=== PATIENT | male | born 1960 | race Caucasian/White ===

== ENCOUNTER 2017-02-20 07:59 | Inpatient (IN) | payer MEDICAID, OTHER ==
[~2017-02-20] VITALS: Ht 172.7 cm; Wt 99.8 kg
[~2017-02-20 07:59] MED LIST: ASPI-1159 PO; BENA40TA3 PO; HYDR-4135 PO; LABE200T PO; SIMV40TA5 PO
[2017-02-20] MEDS ORDERED: SODIUM CHLORIDE 0.9% 1,000 ML IV ONE (08:17)
[2017-02-20] MEDS ORDERED: NITROGLYCERIN 0.4MG TABLET SL SL ONE (08:30)
[2017-02-20] MEDS ORDERED: DILTIAZEM HCL 5MG/ML 5ML VIAL IV ONE ×2 (08:30→08:45)
[2017-02-20 08:43] LABS: BASOPHILS % 1.1 % (0.0-2.0); EOSINOPHILS % 2.6 % (0.0-5.0); HEMATOCRIT. 28.7 % (42.0-52.0); HEMOGLOBIN. 9.5 g/dL (14.0-18.0); LYMPHOCYTES % 30.4 % (20.0-50.0); MEAN CORPUSCULAR HEMOGLOBIN 28.7 pg (28.0-32.0); MEAN CORPUSCULAR VOLUME 86.9 fL (80.0-94.0); MEAN PLATELET VOLUME 8.8 fl (7.4-10.4); MONOCYTES % 7.7 % (2.0-8.0); NEUTROPHILS % 58.2 % (40.0-76.0); PLATELET 206 x1000/uL (130-400); RED BLOOD CELL COUNT 3.31 mill/uL (4.7-6.1)
[2017-02-20 08:51] LABS: D-DIMER 0.93 mg/L FEU (<0.50); INR 1.1; PROTHROMBIN TIME 11.4 sec (9.4-11.6)
[2017-02-20 08:59] LABS: CARBON DIOXIDE 32 mEq/L (21-32); CHLORIDE 97 mEq/L (98-107); T4 FREE 1.07 ng/dL (0.76-1.46); TROPONIN I 0.06 ng/mL (0.00-0.04)
[2017-02-20] MEDS ORDERED: ENOXAPARIN 60MG/0.6ML SYR SUBCUT ONE (10:00)
[2017-02-20] MEDS ORDERED: DILTIAZEM HCL 60MG TABLET PO ONE (10:00)
[2017-02-20] MEDS ORDERED: SODIUM CHLORIDE 0.9% 10ML VIAL ONE (11:43)
[2017-02-20] MEDS ORDERED: IOHEXOL-350 100 ML BOTTLE ONE (11:43)
[2017-02-20] MEDS ORDERED: GUAIFENESIN 200MG/10ML SUGAR FREE UDC PO PRN (14:00)
[2017-02-20] MEDS ORDERED: DOCUSATE SODIUM 100MG CAPSULE PO PRN (14:00)
[2017-02-20] MEDS ORDERED: IPRATROPIUM/ALBUTEROL 0.5-3(2.5)MG/3ML NEB INH PRN (14:00)
[2017-02-20] MEDS ORDERED: ONDANSETRON HCL 4MG/2ML VIAL IV PRN (14:00)
[2017-02-20] MEDS ORDERED: HYDROCODONE/ACETAMINOPHEN 5/325MG TABLET PO PRN (14:00)
[2017-02-20] MEDS ORDERED: MAGNESIUM/ALUMINUM HYDROXIDE/SIMETHICONE 30ML UDC PO PRN (14:00)
[2017-02-20] MEDS ORDERED: DIPHENHYDRAMINE 50MG/ML VIAL IV PRN (14:00)
[2017-02-20] MEDS ORDERED: ACETAMINOPHEN 325MG TABLET PO PRN (14:00)
[2017-02-20] MEDS ORDERED: CLONIDINE 0.1MG TABLET PO PRN (14:00)
[2017-02-20 14:45] VITALS: BP 110/64
[2017-02-20 16:00] VITALS: BP 107/68
[2017-02-20] MEDS: DILTIAZEM HCL 30MG TABLET PO SCH (17:08)
[2017-02-20 20:00] VITALS: BP 106/67
[2017-02-20] MEDS: LABETALOL HCL 200MG TABLET PO SCH (21:36)
[2017-02-20] MEDS: ATORVASTATIN CALCIUM 10MG TABLET PO SCH (21:36)
[2017-02-20 22:00] VITALS: BP 116/70
[2017-02-21] VITALS (12 sets, daily range): BP systolic 99–127; BP diastolic 46–75
[2017-02-21] MEDS: DILTIAZEM HCL 30MG TABLET PO SCH ×4 (00:28→18:17)
[2017-02-21 06:44] LABS: BASOPHILS % 0.7 % (0.0-2.0); EOSINOPHILS % 1.9 % (0.0-5.0); HEMATOCRIT. 25.4 % (42.0-52.0); HEMOGLOBIN. 8.4 g/dL (14.0-18.0); MEAN CORPUSCULAR HEMOGLOBIN 28.8 pg (28.0-32.0); MEAN CORPUSCULAR VOLUME 87.4 fL (80.0-94.0); MEAN PLATELET VOLUME 9.5 fl (7.4-10.4); MONOCYTES % 8.2 % (2.0-8.0); NEUTROPHILS % 66.2 % (40.0-76.0); PLATELET 175 x1000/uL (130-400); RED CELL DISTRIBUTION WIDTH 15.6 % (11.6-14.6)
[2017-02-21 06:51] LABS: T4 FREE 1.08 ng/dL (0.76-1.46); TROPONIN I 0.06 ng/mL (0.00-0.04)
[2017-02-21] MEDS: LABETALOL HCL 200MG TABLET PO SCH ×3 (08:38→21:55)
[2017-02-21] MEDS ORDERED: ASPIRIN 81MG EC TABLET PO SCH (09:00)
[2017-02-21] MEDS: ATORVASTATIN CALCIUM 10MG TABLET PO SCH (20:51)
[2017-02-22] VITALS (11 sets, daily range): BP systolic 113–144; BP diastolic 60–79
[2017-02-22] MEDS: DILTIAZEM HCL 30MG TABLET PO SCH ×3 (00:18→12:00)
[2017-02-22 06:47] LABS: BASOPHILS % 0.7 % (0.0-2.0); EOSINOPHILS % 1.9 % (0.0-5.0); HEMATOCRIT. 25.2 % (42.0-52.0); HEMOGLOBIN. 8.4 g/dL (14.0-18.0); LYMPHOCYTES % 14.5 % (20.0-50.0); MEAN CORPUSCULAR VOLUME 87.4 fL (80.0-94.0); MEAN PLATELET VOLUME 9.8 fl (7.4-10.4); MONOCYTES % 6.9 % (2.0-8.0); PLATELET 171 x1000/uL (130-400); RED BLOOD CELL COUNT 2.88 mill/uL (4.7-6.1); RED CELL DISTRIBUTION WIDTH 15.4 % (11.6-14.6)
[2017-02-22] MEDS ORDERED: FOLIC ACID/VITAMIN B COMP W-C TABLET PO SCH (08:00)
[2017-02-22] MEDS: LABETALOL HCL 200MG TABLET PO SCH (08:37)
[2017-02-22] MEDS ORDERED: SEVELAMER CARBONATE 800 MG TABLET PO SCH (12:20)
[2017-02-22] MEDS ORDERED: EPOETIN ALFA 10000UNITS/ML VIAL SUBCUT SCH (21:00)
== END 2017-02-22 16:28 | disposition home or self-care (01) | DRG 201 ==
LOC: ER 08:08 → 3WST 10:24 → EDBEDREQ 10:28 → ENRESERV 13:14
PROVIDERS: ADMIT Hospitalist; ATTEND Hospitalist
PROC: 5A1D00Z (ICD-10-PCS; principal; 2017-02-22)
DX: I48.92 Unspecified atrial flutter (principal); N18.6 End stage renal disease; E11.22 Type 2 diabetes mellitus with diabetic chronic kidney disease; I48.91 Unspecified atrial fibrillation; E87.6 Hypokalemia; E78.5 Hyperlipidemia, unspecified; D63.1 Anemia in chronic kidney disease; I13.11 Hypertensive heart and chronic kidney disease without heart failure, with stage 5 chronic kidney disease, or end stage renal disease; Z99.2 Dependence on renal dialysis; E87.5 Hyperkalemia; Z79.899 Other long term (current) drug therapy; Z79.82 Long term (current) use of aspirin
CPT/HCPCS: 36415; 71010; 71275; 80048; 80053; 83735; 83880; 84439; 84443; 84484; 85025; 85379; 85610; 93005; 93306; 93970; 96361; 96374; 96375; 99291; A4216; J1650; J3490; J7030; Q9967

== ENCOUNTER 2018-11-25 09:16 | Inpatient (IN) | payer MEDICAID, OTHER ==
[~2018-11-25] VITALS: Ht 160 cm; Wt 90.7 kg
[~2018-11-25 09:16] MED LIST changes: -ASPI-1159 PO; +ASPI-1393 PO; -BENA40TA3 PO; +BENA40TA9 PO; -LABE200T PO; +LABE200T5 PO; +REN800 PO
[2018-11-25 10:31] LABS: BASOPHILS % 1.1 % (0.0-2.0); EOSINOPHILS % 1.5 % (0.0-5.0); HEMATOCRIT. 49.9 % (42.0-52.0); HEMOGLOBIN. 16.5 g/dL (14.0-18.0); LYMPHOCYTES % 20.8 % (20.0-50.0); MEAN CORPUSCULAR VOLUME 90.8 fL (80.0-94.0); MEAN PLATELET VOLUME 9.5 fl (7.4-10.4); MONOCYTES % 10.8 % (2.0-8.0); NEUTROPHILS % 65.8 % (40.0-76.0); PLATELET 173 x1000/uL (130-400); RED BLOOD CELL COUNT 5.49 mill/uL (4.7-6.1); RED CELL DISTRIBUTION WIDTH 16.7 % (11.6-14.6)
[2018-11-25 10:35] LABS: CHLORIDE 97 mEq/L (98-107)
[2018-11-25] MEDS ORDERED: ONDANSETRON HCL 4MG/2ML INJ IV PRN (12:15)
[2018-11-25] MEDS ORDERED: ACETAMINOPHEN 325MG TABLET PO PRN (12:15)
[2018-11-25] MEDS ORDERED: IPRATROPIUM/ALBUTEROL 0.5-3(2.5)MG/3ML NEB HHN PRN (13:15)
[2018-11-25 16:36] VITALS: BP 141/69
[2018-11-25 18:43] VITALS: BP 114/70
[2018-11-25 20:00] VITALS: BP 134/86
[2018-11-25] MEDS ORDERED: REN800 PO (20:18)
[2018-11-25] MEDS ORDERED: DILT360C28 PO (20:21)
[2018-11-26] VITALS: BP 118/80
[2018-11-26 04:00] VITALS: BP 127/77
[2018-11-26] MEDS: DILTIAZEM HCL 180MG CAPSULE CD 24HR PO SCH (06:56)
[2018-11-26 07:08] LABS: INR 1.2; PARTIAL THROMBOPLASTIN TIME 29.1 sec (23.4-31.0); PROTHROMBIN TIME 12.6 sec (9.6-11.0)
[2018-11-26 07:25] LABS: BASOPHILS % 0.5 % (0.0-2.0); EOSINOPHILS % 1.5 % (0.0-5.0); HEMATOCRIT. 47.5 % (42.0-52.0); HEMOGLOBIN. 15.5 g/dL (14.0-18.0); LYMPHOCYTES % 25.1 % (20.0-50.0); MEAN CORPUSCULAR HEMOGLOBIN 29.9 pg (28.0-32.0); MEAN CORPUSCULAR VOLUME 91.4 fL (80.0-94.0); MEAN PLATELET VOLUME 10.2 fl (7.4-10.4); MONOCYTES % 11.6 % (2.0-8.0); NEUTROPHILS % 61.3 % (40.0-76.0); PLATELET 167 x1000/uL (130-400); RED CELL DISTRIBUTION WIDTH 16.5 % (11.6-14.6)
[2018-11-26 08:00] VITALS: BP 118/76
[2018-11-26 12:00] VITALS: BP 115/63
[2018-11-26 16:00] VITALS: BP 118/75
[2018-11-26 20:00] VITALS: BP 106/65
[2018-11-27] VITALS: BP 111/72
[2018-11-27 03:30] VITALS: BP 123/83
[2018-11-27 07:03] LABS: BASOPHILS % 0.4 % (0.0-2.0); EOSINOPHILS % 1.5 % (0.0-5.0); HEMATOCRIT. 46.1 % (42.0-52.0); HEMOGLOBIN. 15.3 g/dL (14.0-18.0); LYMPHOCYTES % 21.1 % (20.0-50.0); MEAN CORPUSCULAR HEMOGLOBIN 30.4 pg (28.0-32.0); MEAN CORPUSCULAR VOLUME 91.5 fL (80.0-94.0); MONOCYTES % 10.7 % (2.0-8.0); NEUTROPHILS % 66.3 % (40.0-76.0); PLATELET 162 x1000/uL (130-400); RED BLOOD CELL COUNT 5.04 mill/uL (4.7-6.1); RED CELL DISTRIBUTION WIDTH 16.3 % (11.6-14.6)
[2018-11-27 08:00] VITALS: BP 133/85
[2018-11-27] MEDS ORDERED: SODIUM BICARBONATE 4% (2.4MEQ) 5ML VIAL IV ONE (08:27)
[2018-11-27 12:00] VITALS: BP 124/75
[2018-11-27] MEDS: DILTIAZEM HCL 180MG CAPSULE CD 24HR PO SCH (13:18)
[2018-11-27 16:00] VITALS: BP 129/89
[2018-11-27 20:00] VITALS: BP 104/43
[2018-11-28] VITALS: BP 110/56
[2018-11-28 04:00] VITALS: BP 118/72
[2018-11-28 06:37] LABS: BASOPHILS % 0.4 % (0.0-2.0); EOSINOPHILS % 1.2 % (0.0-5.0); HEMATOCRIT. 47.4 % (42.0-52.0); HEMOGLOBIN. 15.9 g/dL (14.0-18.0); LYMPHOCYTES % 19.5 % (20.0-50.0); MEAN CORPUSCULAR HEMOGLOBIN 30.6 pg (28.0-32.0); MEAN CORPUSCULAR VOLUME 91.3 fL (80.0-94.0); MEAN PLATELET VOLUME 9.7 fl (7.4-10.4); MONOCYTES % 9.9 % (2.0-8.0); PLATELET 139 x1000/uL (130-400); RED BLOOD CELL COUNT 5.19 mill/uL (4.7-6.1); RED CELL DISTRIBUTION WIDTH 16.3 % (11.6-14.6)
[2018-11-28 08:00] VITALS: BP 114/64
[2018-11-28] MEDS: DILTIAZEM HCL 180MG CAPSULE CD 24HR PO SCH (09:12)
[2018-11-28 11:50] VITALS: BP 114/64
[2018-11-28 12:00] VITALS: BP 118/79
== END 2018-11-28 15:00 | disposition home or self-care (01) | DRG 133 ==
LOC: ER 09:16 → 7WST 12:01 → EDBEDREQ 12:03 → EDBEDREQSVC 12:03 → EDBEDREQTM 12:03 → ENRESERV 12:40
PROVIDERS: ADMIT Internal Medicine; ATTEND Internal Medicine
PROC: 5A1D70Z Performance of Urinary Filtration, Intermittent, Less than 6 Hours Per Day (ICD-10-PCS; 2018-11-25)
PROC: 5A1D70Z Performance of Urinary Filtration, Intermittent, Less than 6 Hours Per Day (ICD-10-PCS; 2018-11-26)
PROC: 0W9B3ZZ Drainage of Left Pleural Cavity, Percutaneous Approach (ICD-10-PCS; principal; 2018-11-27)
PROC: 5A1D70Z Performance of Urinary Filtration, Intermittent, Less than 6 Hours Per Day (ICD-10-PCS; 2018-11-27)
PROC: 5A1D70Z Performance of Urinary Filtration, Intermittent, Less than 6 Hours Per Day (ICD-10-PCS; 2018-11-28)
DX: J96.00 Acute respiratory failure, unspecified whether with hypoxia or hypercapnia (principal); I13.2 Hypertensive heart and chronic kidney disease with heart failure and with stage 5 chronic kidney disease, or end stage renal disease; E11.22 Type 2 diabetes mellitus with diabetic chronic kidney disease; I27.20 Pulmonary hypertension, unspecified; J91.8 Pleural effusion in other conditions classified elsewhere; E11.51 Type 2 diabetes mellitus with diabetic peripheral angiopathy without gangrene; N18.6 End stage renal disease; I50.41 Acute combined systolic (congestive) and diastolic (congestive) heart failure; D64.9 Anemia, unspecified; I25.10 Atherosclerotic heart disease of native coronary artery without angina pectoris; K74.60 Unspecified cirrhosis of liver; I48.2 Chronic atrial fibrillation; Z99.2 Dependence on renal dialysis; Z79.899 Other long term (current) drug therapy
CPT/HCPCS: 32555; 36415; 71045; 80048; 80061; 82962; 83036; 83735; 83880; 84443; 84484; 93005; 93306; 99285; J3490

== ENCOUNTER 2019-04-07 04:46 | Inpatient (IN) | payer MEDICAID ==
[2019-04-07] VITALS (7 sets, daily range): BP systolic 93–115; BP diastolic 36–84
[~2019-04-07] VITALS: Ht 175.3 cm; Wt 98.0 kg
[~2019-04-07 04:46] MED LIST changes: -ASPI-1393 PO; -BENA40TA9 PO; +DILT360C28 PO; -HYDR-4135 PO; -LABE200T5 PO
[2019-04-07] MEDS ORDERED: SODIUM BICARBONATE 8.4% 1 MEQ/ML 50ML SYR IV ONE (05:00)
[2019-04-07] MEDS ORDERED: CALCIUM GLUCONATE 100MG/ML 10ML VIAL IV ONE (05:00)
[2019-04-07] MEDS ORDERED: CALCIUM CHLORIDE 1GM/10ML SYR IV ONE (05:10)
[2019-04-07 05:13] LABS: EOSINOPHILS % 0.7 % (0.0-5.0); HEMATOCRIT. 48.2 % (42.0-52.0); HEMOGLOBIN. 15.8 g/dL (14.0-18.0); LYMPHOCYTES % 33.5 % (20.0-50.0); MEAN CORPUSCULAR VOLUME 91.4 fL (80.0-94.0); MEAN PLATELET VOLUME 10.6 fl (7.4-10.4); MONOCYTES % 7.8 % (2.0-8.0); PLATELET 203 x1000/uL (130-400); RED BLOOD CELL COUNT 5.27 mill/uL (4.7-6.1); RED CELL DISTRIBUTION WIDTH 17.2 % (11.6-14.6)
[2019-04-07] MEDS ORDERED: CALCIUM GLUCONATE 1,000 MG in DEXTROSE 5% WATER 50 ML IV SCH (05:15)
[2019-04-07] MEDS ORDERED: INSULIN REGULAR (HUMULIN R) 300UNITS/3ML IV ONE (05:15)
[2019-04-07] MEDS ORDERED: DEXTROSE 50% WATER 50ML SYRINGE IV ONE (05:15)
[2019-04-07 05:26] LABS: CHLORIDE 99 mEq/L (98-107)
[2019-04-07] MEDS: SODIUM CHLORIDE 0.9% 250 ML IV ONE ×2 (05:57→06:08)
[2019-04-07] MEDS: ALBUTEROL (0.083%) 2.5MG/3ML NEB HHN ONE ×3 (06:06→06:26)
[2019-04-07] MEDS ORDERED: CEFTRIAXONE 1 G PREMIX 50 ML IV ONE (07:30)
[2019-04-07] MEDS ORDERED: SODIUM CHLORIDE 0.9% 1,000 ML IV ONE (07:30)
[2019-04-07] MEDS ORDERED: GUAIFENESIN 200MG/10ML SUGAR FREE UDC PO PRN (08:00)
[2019-04-07] MEDS ORDERED: ACETAMINOPHEN 325MG TABLET PO PRN (08:00)
[2019-04-07] MEDS ORDERED: DIPHENHYDRAMINE 50MG/ML VIAL IV PRN (08:00)
[2019-04-07] MEDS ORDERED: NITROGLYCERIN 0.4MG TABLET SL SL PRN (08:00)
[2019-04-07] MEDS ORDERED: CLONIDINE 0.1MG TABLET PO PRN (08:00)
[2019-04-07] MEDS ORDERED: IPRATROPIUM/ALBUTEROL 0.5-3(2.5)MG/3ML NEB NEB PRN (08:00)
[2019-04-07] MEDS ORDERED: DOCUSATE SODIUM 100MG CAPSULE PO PRN (08:00)
[2019-04-07] MEDS ORDERED: ONDANSETRON HCL 4MG/2ML INJ IV PRN (08:00)
[2019-04-07] MEDS ORDERED: MAGNESIUM/ALUMINUM HYDROXIDE/SIMETHICONE 30ML UDC PO PRN (08:00)
[2019-04-07] MEDS ORDERED: SODIUM CHLORIDE 0.9% 1,000 ML IV SCH (08:45)
[2019-04-07] MEDS: MIDODRINE HCL 5MG TABLET PO SCH ×3 (09:00→17:30)
[2019-04-07] MEDS: FAMOTIDINE 20MG TABLET PO SCH ×2 (09:00→13:44)
[2019-04-07] MEDS: SEVELAMER CARBONATE 800 MG TABLET PO SCH ×3 (09:00→17:30)
[2019-04-07] MEDS: ASPIRIN 325MG EC TABLET PO SCH ×2 (09:00→13:44)
[2019-04-07] MEDS: FOLIC ACID/VITAMIN B COMP W-C TABLET PO SCH ×2 (09:00→13:44)
[2019-04-07] MEDS ORDERED: SODIUM POLYSTYRENE SULFONATE 15 G/60 ML BOT PO SCH (10:00)
[2019-04-07] MEDS: ENOXAPARIN 40MG/0.4ML SYR SUBCUT SCH (13:43)
[2019-04-07 16:14] LABS: CREATINE KINASE 22 IU/L (39-308)
[2019-04-07 16:15] LABS: CREATINE KINASE MB FRACTION 1.7 ng/mL (0.5-3.6)
[2019-04-07] MEDS: SODIUM CHLORIDE 0.9% 1,000 ML IV SCH (17:31)
[2019-04-07] MEDS ORDERED: ZOLPIDEM TARTRATE 5MG TABLET PO PRN (21:00)
[2019-04-07 23:36] LABS: CREATINE KINASE 24 IU/L (39-308)
[2019-04-07 23:37] LABS: CREATINE KINASE MB FRACTION 1.3 ng/mL (0.5-3.6)
[2019-04-08] VITALS (10 sets, daily range): BP systolic 97–148; BP diastolic 68–91
[2019-04-08] MEDS: MIDODRINE HCL 5MG TABLET PO SCH ×2 (09:00→12:54)
[2019-04-08] MEDS: SODIUM CHLORIDE 0.9% 1,000 ML IV SCH (09:03)
[2019-04-08] MEDS: SEVELAMER CARBONATE 800 MG TABLET PO SCH ×2 (09:03→12:56)
[2019-04-08] MEDS: ASPIRIN 325MG EC TABLET PO SCH (09:04)
[2019-04-08] MEDS: ENOXAPARIN 40MG/0.4ML SYR SUBCUT SCH (09:05)
== END 2019-04-08 16:05 | disposition home or self-care (01) | DRG 201 ==
LOC: ER 04:46 → 5EST 05:51 → ENRESERV 07:11
PROVIDERS: ADMIT Internal Medicine; ATTEND Internal Medicine
PROC: 5A1D70Z Performance of Urinary Filtration, Intermittent, Less than 6 Hours Per Day (ICD-10-PCS; principal; 2019-04-07)
DX: R00.1 Bradycardia, unspecified (principal); J96.00 Acute respiratory failure, unspecified whether with hypoxia or hypercapnia; I13.2 Hypertensive heart and chronic kidney disease with heart failure and with stage 5 chronic kidney disease, or end stage renal disease; E44.0 Moderate protein-calorie malnutrition; I95.9 Hypotension, unspecified; E11.22 Type 2 diabetes mellitus with diabetic chronic kidney disease; E11.51 Type 2 diabetes mellitus with diabetic peripheral angiopathy without gangrene; E87.1 Hypo-osmolality and hyponatremia; I50.30 Unspecified diastolic (congestive) heart failure; N18.6 End stage renal disease; E87.5 Hyperkalemia; E78.00 Pure hypercholesterolemia, unspecified; I48.91 Unspecified atrial fibrillation; E78.5 Hyperlipidemia, unspecified; I25.10 Atherosclerotic heart disease of native coronary artery without angina pectoris; K21.9 Gastro-esophageal reflux disease without esophagitis; Z99.2 Dependence on renal dialysis; Z79.899 Other long term (current) drug therapy; Z89.421 Acquired absence of other right toe(s); Z87.891 Personal history of nicotine dependence; Z68.31 Body mass index [BMI] 31.0-31.9, adult
CPT/HCPCS: 36415; 71045; 82550; 82553; 82962; 83036; 83880; 84132; 84484; 93005; 94640; 99291; J0610; J0696; J1650; J1815; J3490; J7030; J7060; J7611

== ENCOUNTER 2019-07-02 08:58 | Inpatient (IN) | payer MEDICAID, OTHER ==
[~2019-07-02] VITALS: Ht 182.9 cm; Wt 95.5 kg
[~2019-07-02 08:58] MED LIST changes: -DILT360C28 PO; +DILT360C37 PO; +SIMV-46 PO; -SIMV40TA5 PO
[2019-07-02] MEDS ORDERED: SODIUM CHLORIDE 0.9% 1,000 ML IV ONE (09:37)
[2019-07-02 09:51] LABS: BASOPHILS % 0.7 % (0.0-2.0); EOSINOPHILS % 2.6 % (0.0-5.0); HEMATOCRIT. 43.4 % (42.0-52.0); LYMPHOCYTES % 30.8 % (20.0-50.0); MEAN CORPUSCULAR HEMOGLOBIN 29.3 pg (28.0-32.0); MEAN CORPUSCULAR VOLUME 90.7 fL (80.0-94.0); MEAN PLATELET VOLUME 9.6 fl (7.4-10.4); NEUTROPHILS % 53.9 % (40.0-76.0); PLATELET 179 x1000/uL (130-400); RED BLOOD CELL COUNT 4.78 mill/uL (4.7-6.1); RED CELL DISTRIBUTION WIDTH 17.1 % (11.6-14.6)
[2019-07-02 10:00] LABS: CHLORIDE 96 mEq/L (98-107)
[2019-07-02] MEDS ORDERED: PIPERACILLIN/TAZ 3.375G PREMIX 50 ML IV ONE (10:45)
[2019-07-02] MEDS ORDERED: LEVOFLOXACIN 750MG PREMIX 150 ML IV ONE (10:45)
[2019-07-02] MEDS ORDERED: AMIODARONE HCL 50MG/ML 3ML VIAL IV ONE (10:45)
[2019-07-02] MEDS ORDERED: LORAZEPAM 2MG/ML CPJ IV PRN (12:15)
[2019-07-02] MEDS ORDERED: ONDANSETRON HCL 4MG/2ML INJ IV PRN (12:15)
[2019-07-02] MEDS ORDERED: NA PHOS,M-B/NA PHOS,DI-BA ENEMA 118ML PR PRN (12:15)
[2019-07-02] MEDS ORDERED: IPRATROPIUM/ALBUTEROL 0.5-3(2.5)MG/3ML NEB NEB PRN (12:15)
[2019-07-02] MEDS ORDERED: DOCUSATE SODIUM 100MG CAPSULE PO PRN (12:15)
[2019-07-02] MEDS ORDERED: CLONIDINE 0.1MG TABLET PO PRN (12:15)
[2019-07-02] MEDS ORDERED: DIPHENHYDRAMINE 50MG/ML VIAL IV PRN (12:15)
[2019-07-02] MEDS ORDERED: ACETAMINOPHEN 325MG TABLET PO PRN (12:15)
[2019-07-02] MEDS ORDERED: HYDROCODONE/ACETAMINOPHEN 5/325MG TABLET PO PRN (12:15)
[2019-07-02] MEDS ORDERED: MORPHINE SULFATE 2 MG/ML CPJ (NOT FOR IM USE) IV PRN (12:15)
[2019-07-02] MEDS ORDERED: MAGNESIUM/ALUMINUM HYDROXIDE/SIMETHICONE 30ML UDC PO PRN (12:15)
[2019-07-02] MEDS ORDERED: GUAIFENESIN 200MG/10ML SUGAR FREE UDC PO PRN (12:15)
[2019-07-02] MEDS ORDERED: ENOXAPARIN 40MG/0.4ML SYR SUBCUT SCH (13:00)
[2019-07-02] MEDS: ENOXAPARIN 100MG/ML SYR SUBCUT SCH (17:00)
[2019-07-02 18:00] LABS: CHLORIDE 98 mEq/L (98-107)
[2019-07-02] MEDS ORDERED: DILTIAZEM HCL 60MG TABLET PO NR (21:00)
[2019-07-02 23:10] VITALS: BP 104/65
[2019-07-02 23:30] VITALS: BP 104/65
[2019-07-03] MEDS ORDERED: ASPI-1497 PO (01:15)
[2019-07-03] MEDS ORDERED: LISI2.5T47 PO (01:19)
[2019-07-03 04:00] VITALS: BP 102/51
[2019-07-03] MEDS: DILTIAZEM HCL 60MG TABLET PO SCH ×3 (05:41→21:36)
[2019-07-03 06:37] LABS: INR 1.2; PROTHROMBIN TIME 12.1 sec (9.6-11.0)
[2019-07-03 06:38] LABS: BASOPHILS % 1.1 % (0.0-2.0); EOSINOPHILS % 2.3 % (0.0-5.0); HEMATOCRIT. 40.2 % (42.0-52.0); LYMPHOCYTES % 22.5 % (20.0-50.0); MEAN CORPUSCULAR HEMOGLOBIN 29.4 pg (28.0-32.0); MONOCYTES % 11.4 % (2.0-8.0); NEUTROPHILS % 62.7 % (40.0-76.0); PLATELET 180 x1000/uL (130-400); RED BLOOD CELL COUNT 4.41 mill/uL (4.7-6.1); RED CELL DISTRIBUTION WIDTH 16.9 % (11.6-14.6)
[2019-07-03] MEDS ORDERED: DEXTROSE 50% WATER 50ML SYRINGE IV PRN (07:30)
[2019-07-03] MEDS: INSULIN LISPRO 100 UNITS/ML SUBCUT SCH ×4 (07:47→21:00)
[2019-07-03] MEDS: BLOOD SUGAR DIAGNOSTIC STRIP TEST SCH ×4 (07:47→21:35)
[2019-07-03 08:00] VITALS: BP 115/72
[2019-07-03 09:05] LABS: CHLORIDE 98 mEq/L (98-107)
[2019-07-03] MEDS: ASPIRIN 81MG EC TABLET PO SCH (09:11)
[2019-07-03 09:14] LABS: LDL CHOLESTEROL 70 mg/dL (5-100)
[2019-07-03 09:15] LABS: HDL CHOLESTEROL 37 mg/dL (40-59)
[2019-07-03 09:16] LABS: T4 FREE 1.09 ng/dL (0.76-1.46)
[2019-07-03 12:00] VITALS: BP 115/69
[2019-07-03 16:00] VITALS: BP 110/73
[2019-07-03 17:46] LABS: *AMPHETAMINES SCREEN URINE NEGATIVE (NEGATIVE); *BARBITURATES SCREEN URINE NEGATIVE (NEGATIVE); *BENZODIAZEPINES SCREEN URINE NEGATIVE (NEGATIVE); *COCAINE SCREEN URINE NEGATIVE (NEGATIVE); METHADONE URINE SCREEN NEGATIVE (NEGATIVE); OPIATES URINE SCREEN NEGATIVE (NEGATIVE); PHENCYCLIDINE URINE SCREEN NEGATIVE (NEGATIVE)
[2019-07-03 17:47] LABS: CANNABINOID URINE SCREEN NEGATIVE (NEGATIVE)
[2019-07-03] MEDS: ENOXAPARIN 100MG/ML SYR SUBCUT SCH (17:49)
[2019-07-03 20:08] VITALS: BP 105/61
[2019-07-04 00:44] VITALS: BP 95/60
[2019-07-04 04:00] VITALS: BP 101/48
[2019-07-04] MEDS: DILTIAZEM HCL 60MG TABLET PO SCH ×3 (05:23→21:51)
[2019-07-04] MEDS: BLOOD SUGAR DIAGNOSTIC STRIP TEST SCH ×4 (06:21→21:00)
[2019-07-04] MEDS: INSULIN LISPRO 100 UNITS/ML SUBCUT SCH ×4 (07:50→21:00)
[2019-07-04 08:00] VITALS: BP 99/45
[2019-07-04] MEDS: ASPIRIN 81MG EC TABLET PO SCH (08:27)
[2019-07-04 09:48] LABS: BASOPHILS % 1.5 % (0.0-2.0); HEMATOCRIT. 40.2 % (42.0-52.0); HEMOGLOBIN. 13.3 g/dL (14.0-18.0); LYMPHOCYTES % 25.2 % (20.0-50.0); MEAN CORPUSCULAR HEMOGLOBIN 29.7 pg (28.0-32.0); NEUTROPHILS % 60.3 % (40.0-76.0); PLATELET 179 x1000/uL (130-400); RED BLOOD CELL COUNT 4.47 mill/uL (4.7-6.1); RED CELL DISTRIBUTION WIDTH 16.7 % (11.6-14.6)
[2019-07-04] MEDS ORDERED: SODIUM BICARBONATE 8.4% 1 MEQ/ML 50ML SYR IV NR (11:01)
[2019-07-04 12:00] VITALS: BP 105/49
[2019-07-04] MEDS ORDERED: DEXTROSE 50% WATER 50ML SYRINGE IV NR (12:00)
[2019-07-04] MEDS ORDERED: INSULIN REGULAR (HUMULIN R) UD 100 UNITS/ML SYR IV NR (12:00)
[2019-07-04] MEDS ORDERED: APIXABAN 5 MG TABLET PO SCH (15:00)
[2019-07-04 16:00] VITALS: BP 122/66
[2019-07-04 20:42] VITALS: BP 122/66
== END 2019-07-04 21:55 | disposition home or self-care (01) | DRG 139 ==
LOC: ER 08:58 → 6WST 11:20 → ENRESERV 20:12 → CANRESERV 20:12 → ENRESERV 22:25
PROVIDERS: ADMIT Internal Medicine; ATTEND Internal Medicine
PROC: 5A1D70Z Performance of Urinary Filtration, Intermittent, Less than 6 Hours Per Day (ICD-10-PCS; principal; 2019-07-04)
DX: J18.1 Lobar pneumonia, unspecified organism (principal); I13.2 Hypertensive heart and chronic kidney disease with heart failure and with stage 5 chronic kidney disease, or end stage renal disease; E11.22 Type 2 diabetes mellitus with diabetic chronic kidney disease; I27.20 Pulmonary hypertension, unspecified; E46 Unspecified protein-calorie malnutrition; N18.6 End stage renal disease; I48.20 Chronic atrial fibrillation, unspecified; D64.9 Anemia, unspecified; I50.9 Heart failure, unspecified; E78.5 Hyperlipidemia, unspecified; Z79.899 Other long term (current) drug therapy; Z68.28 Body mass index [BMI] 28.0-28.9, adult; Z99.2 Dependence on renal dialysis; Z89.421 Acquired absence of other right toe(s)
CPT/HCPCS: 36415; 71045; 80048; 80053; 80061; 80305; 82962; 83735; 83880; 84132; 84439; 84443; 84484; 85025; 93005; 93306; 99291; J0282; J1650; J1815; J1956; J2543; J3490; J7030